=== PATIENT | male | born 1960 | race Caucasian/White ===

== ENCOUNTER → 2016-05-03 | Outpatient (CLI) | payer OTHER | LOC: MMPC 11:11 | PROVIDERS: ATTEND Physician Assistant | DX: J01.90 Acute sinusitis, unspecified (principal) ==

== ENCOUNTER → 2016-07-23 | Outpatient (CLI) | payer OTHER | LOC: MMPC 09:00 | PROVIDERS: ATTEND Physician Assistant Medical | DX: J01.01 Acute recurrent maxillary sinusitis (principal) | CPT/HCPCS: 99213; G0463 ==

== ENCOUNTER → 2016-07-29 | Outpatient (CLI) | payer OTHER | LOC: MMPC 09:00 | PROVIDERS: ATTEND Family Medicine | DX: R56.9 Unspecified convulsions (principal); G47.34 Idiopathic sleep related nonobstructive alveolar hypoventilation; I10 Essential (primary) hypertension; E78.5 Hyperlipidemia, unspecified; G47.33 Obstructive sleep apnea (adult) (pediatric) | CPT/HCPCS: 99213 ==

== ENCOUNTER → 2016-07-30 | Outpatient (CLI) | payer OTHER ==
[2016-07-30 07:16] LABS: BASOPHILS # (AUTO) 0.15 10*3/UL; BASOPHILS % (AUTO) 1.7 % (0-1); EOSINOPHILS # (AUTO) 0.33 10*3/UL; EOSINOPHILS % (AUTO) 3.8 % (0-8); HEMATOCRIT 49.5 % (42.0-52.0); LYMPHOCYTES # (AUTO) 2.15 10*3/uL; MEAN CORPUSCULAR HGB CONC 34.3 g/dL (33-37); MEAN CORPUSCULAR VOLUME 84.5 FL (80-90); MEAN PLATELET VOLUME 10.8 FL (7.4-12.2); MONOCYTES # (AUTO) 0.66 10*3/UL (0.3-0.8); MONOCYTES % (AUTO) 7.5 % (5-15); NEUTROPHILS # (AUTO) 5.48 10*3/UL; NEUTROPHILS % (AUTO) 62.3 % (50-80); RED BLOOD COUNT 5.86 10^6/uL (4.70-6.10)
[2016-07-30 07:20] LABS: PLATELET MORPHOLOGY COMMENT NORMAL MORPHOLOGY (NORM); RBC MORPHOLOGY COMMENT NORMAL MORPHOLOGY (NORM); WBC MORPHOLOGY COMMENT NORMAL MORPHOLOGY (NORM)
[2016-07-30 07:35] LABS: BLOOD UREA NITROGEN 18 mg/dL (7-22); CALCIUM 9.3 mg/dL (8.7-10.7); CHOL/HDL RATIO 4.56 RATIO (0-4.0); EST GLOMERULAR FILTRATION > 60 (>60 ml/min/1.73m(2)); HDL CHOLESTEROL 46 mg/dL (40-150); SERUM ALBUMIN 4.3 g/dL (3.5-4.8); SERUM CHOLESTEROL 210 mg/dL (120-200)
[2016-07-30 07:46] LABS: HEMOGLOBIN A1C 5.78 % (4.2-6.0)
[2016-07-30 08:01] LABS: FREE T4 (FREE THYROXINE) 1.04 ng/dL (0.93-1.71)
== END ==
LOC: LAB 07:04
PROVIDERS: ATTEND Family Medicine
DX: I10 Essential (primary) hypertension (principal); E78.5 Hyperlipidemia, unspecified; G47.33 Obstructive sleep apnea (adult) (pediatric); G47.34 Idiopathic sleep related nonobstructive alveolar hypoventilation; E55.9 Vitamin D deficiency, unspecified; R56.9 Unspecified convulsions; Z12.5 Encounter for screening for malignant neoplasm of prostate
CPT/HCPCS: 36415; 80053; 80061; 82306; 83036; 84439; 84443; 85025; G0103

== ENCOUNTER → 2016-08-09 | Outpatient (CLI) | payer OTHER | LOC: MMPC 09:00 | PROVIDERS: ATTEND Family Medicine | DX: I10 Essential (primary) hypertension (principal) | CPT/HCPCS: 99213; G0463 ==

== ENCOUNTER → 2016-09-30 | Outpatient (CLI) | payer OTHER | LOC: LAB 07:02 | PROVIDERS: ATTEND Family Medicine | DX: E55.9 Vitamin D deficiency, unspecified (principal) | CPT/HCPCS: 36415; 82306 ==